=== PATIENT | male | born 1995 | race Two or more races ===

== ENCOUNTER 2019-02-01 05:28 | Day surgery (SDC) | payer BC ==
[~2019-02-01] VITALS: Ht 193 cm; Wt 120.7 kg
[2019-02-01] VITALS (8 sets, daily range): BP systolic 136–177; BP diastolic 68–98
[~2019-02-01 05:28] MED LIST: ACETAMINOPHEN ES 500 MG TABLET ONE
--- NOTE | 2019-02-01 05:30 | NUR ---
MS RUG DRYING MACHINE OPERATOR NOTES Received patient A/O x4, awake, ambulatory without assist, admitted for surgical operation: ORIF R clavicle. On RA, no respiratory distress noted. Admission routine done. Witnessed consents for surgery, anesthesia and blood transfusion. Blood sugar checked -88. MRSA sample taken, endorsed to medical lab specialist present upon admission. Per patient last meal intake at 01/31/19 1800, last void 02/01/19 0300. IV line initiated, well blood return noted after first attempt: LFA G#18, SL. Kept on bed clean, dry and comfortable. Call light at bedside. Mother at bedside. Will continue to monitor accordingly.
--- NOTE | 2019-02-01 07:08 | NUR ---
MS RN NOTES Patient wheeled to OR by OR staff via hospital bed. Endorsed to CAROL Carter.
[2019-02-01] MEDS ORDERED: ANESTHESIA TRAY IN PYXIS 1 EA TRAY MC ONE (07:19)
[2019-02-01] MEDS ORDERED: BUPIVACAINE 0.5 % PF 150 MG/30 ML VIAL ONE (07:19)
[2019-02-01] MEDS ORDERED: BACITRACIN 50000 UNITS/VIAL ONE (07:19)
[2019-02-01] MEDS ORDERED: MIDAZOLAM HCL 2 MG/2ML VIAL ONE (07:23)
[2019-02-01] MEDS ORDERED: ROCURONIUM BROMIDE 50 MG/5 ML ONE ×2 (07:23→08:23)
[2019-02-01] MEDS ORDERED: HYDROMORPHONE INJ 2 MG/ML DISP.SYRIN ONE (07:23)
[2019-02-01] MEDS ORDERED: HEMOSTATIC MATRIX 8 ML 1 EACH PAD MC ONE (08:32)
[2019-02-01] MEDS ORDERED: TRANEXAMIC ACID 1,000 MG in IV NS 0.9% 100 ML IV ONE (09:00)
--- NOTE | 2019-02-01 10:41 | NUR ---
RN MS NOTES RECEIVED PT FROM O.R. STAFF VIA BED, PT IS AWAKE, ALERT AND ORIENTED, WITH COMPLAINT OF RIGHT CLAVICLE PAIN, S/P ORIF BY DR. EDMONDS, POST ORDERS RECEIVED, NOTED AND CARRIED OUT, VITAL SIGNS TAKEN AND RECORDED.
[2019-02-01] MEDS ORDERED: MORPHINE SULFATE INJ 4 MG/ML DISP.SYRIN IV PRN (11:00)
[2019-02-01] MEDS ORDERED: oxyCODONE/APAP (5/325 MG) 1 UDTAB TABLET PO PRN (11:00)
[2019-02-01] MEDS ORDERED: MENTHOL/CETYLPYRD (CEPACOL) 1 LOZ LOZENGE PO PRN (12:30)
[2019-02-01] MEDS ORDERED: ONDANSETRON HCL/PF 4 MG/2 ML VIAL IV PRN (12:30)
--- NOTE | 2019-02-01 16:48 | NUR ---
RN MS NOTES PT AWAKE, ALERT AND ORIENTED, NOT IN DISTRESS, PAIN MEDS GIVEN FOR PAIN MANAGEMENT, VITAL SIGNS STABLE, PT TOLERATING CURRENT DIET, ABLE TO AMBULATE IN HIS ROOM, PT EDUCATION PROVIDED REGARDING POST OP AND FOLLOW UP, VERBALIZED UNDERSTANDING, ASSISTED BY DECONTAMINATION TECHNICIAN TO HOSPITAL LOBBY VIA WHEELCHAIR, LEFT WITH FAMILY IN STABLE CONDITION.
== END 2019-02-01 16:45 | disposition home or self-care (01) ==
LOC: DS 05:28 → MED 05:30 → UNDOADMIN 05:30 → DS 16:45 → UNDODISIN 16:45
PROVIDERS: ATTEND Student in an Organized Health Care Education/Training Program
DX: S42.001A Fracture of unspecified part of right clavicle, initial encounter for closed fracture (principal); E66.01 Morbid (severe) obesity due to excess calories; Z68.32 Body mass index [BMI] 32.0-32.9, adult; K21.9 Gastro-esophageal reflux disease without esophagitis; Z79.899 Other long term (current) drug therapy; X58.XXXA Exposure to other specified factors, initial encounter; Y93.89 Activity, other specified; Y92.89 Other specified places as the place of occurrence of the external cause; Y99.8 Other external cause status
CPT/HCPCS: 23515; 36415; 73000; 82962; 86850; 87081; A6402; C1713 ×5; J0690; J1100; J1170; J2250; J2270; J2405 ×2; J2704; J2710; J3490 ×4; J7030; J7050; G0378